=== PATIENT | male | born 1950 | race Two or more races ===

== ENCOUNTER 2023-02-28 22:11 | Inpatient (IN) | payer BC ==
[~2023-02-28] VITALS: Ht 185.4 cm; Wt 86.2 kg
[2023-02-28] MEDS ORDERED: VANCOMYCIN IV 1,000 MG in IV DEXTROSE 5% 250 ML IV ONE (23:00)
[2023-02-28] MEDS ORDERED: IV NORMAL SALINE 500 ML BAG IV ONE (23:00)
[2023-02-28] MEDS ORDERED: HYDROCODONE/APAP 5-325MG TABLET PO ONE (23:00)
[2023-02-28] MEDS ORDERED: VANCOMYCIN 1000 MG VIAL ONE (23:14)
[2023-02-28] MEDS ORDERED: HYDROCODONE/APAP 5-325MG TABLET ONE (23:15)
[2023-02-28 23:31] LABS: CALCIUM 9.3 mg/dL (8.5-10.1); CARBON DIOXIDE 26 mmol/L (21-32); CHLORIDE 104 mmol/L (98-107); GLUCOSE 83 mg/dL (74-106); POTASSIUM 3.7 mmol/L (3.5-5.1); SODIUM SERUM 139 mmol/L (136-145); UREA NITROGEN, BLOOD 22 mg/dL (7-18)
[2023-02-28 23:34] LABS: BASOPHILS % (AUTO) 0.4 % (0.0-2.0); DIFFERENTIAL COMMENT 0; EOSINOPHILS % (AUTO) 0.1 % (0.0-7.0); HEMATOCRIT 44.9 % (36.7-47.1); LYMPHOCYTES # (AUTO) 0.8 K/uL (0.8-4.8); LYMPHOCYTES % (AUTO) 9.2 % (20.5-51.5); MEAN CORPUSCULAR HEMOGLOBIN 34.2 uug (23.8-33.4); MEAN CORPUSCULAR HGB CONC 34 g/dL (32.5-36.3); MEAN CORPUSCULAR VOLUME 102.2 fL (73.0-96.2); MONOCYTES # (AUTO) 0.6 K/uL (0.1-1.30); MONOCYTES % (AUTO) 6.6 % (0.0-11.0); NEUTROPHILS # (AUTO) 7.7 K/uL (1.8-8.9); NEUTROPHILS % (AUTO) 83.7 % (38.5-71.5); PLATELET COUNT (AUTO) 227 K/uL (152-348); RED BLOOD CELL COUNT(AUTO) 4.39 MIL/uL (4.06-5.63); RED CELL DISTRIBUTION WIDTH 13.7 % (12.1-16.2); WHITE BLOOD COUNT (AUTO) 9.2 K/uL (3.6-10.2)
[2023-02-28 23:36] LABS: ALANINE AMINOTRANSFERASE 43 U/L (16-63); ALBUMIN 3.5 g/dL (3.4-5.0); ALKALINE PHOSPHATASE 92 U/L (50-136); ASPARTATE AMINOTRANSFERASE 133 U/L (15-37); BILIRUBIN,DIRECT 0.6 mg/dL (0.0-0.2); BILIRUBIN,TOTAL 2.4 mg/dL (0.2-1.0); TOTAL PROTEIN, SERUM 7.1 g/dL (6.4-8.2)
[2023-03-01] MEDS ORDERED: MAGNESIUM HYDROXIDE 30 ML LIQUID UDC PO PRN (02:30)
[2023-03-01] MEDS ORDERED: LORAZEPAM 2 MG/1 ML VIAL IV PRN (02:30)
[2023-03-01] MEDS ORDERED: REMEDY ESSENTIAL ZINC PASTE 113 GM TP PRN (02:30)
[2023-03-01] MEDS ORDERED: ONDANSETRON 4 MG/2 ML VIAL IV PRN (02:30)
[2023-03-01] MEDS ORDERED: HYDROCODONE/APAP 10-325 MG TABLET PO PRN (02:30)
[2023-03-01] MEDS ORDERED: ACETAMINOPHEN 325 MG TABLET PO PRN (02:30)
[2023-03-01] MEDS: IV NS 1000 ML 1,000 ML IV PRN (03:32)
[2023-03-01] MEDS: VANCOMYCIN IV 750 MG in IV DEXTROSE 5% 250 ML IV SCH ×3 (10:13→21:27)
[2023-03-01 17:30] LABS: *BILIRUBIN,URIN NEGATIVE (NEGATIVE); *BLOOD, URINE 2+ (NEGATIVE); *CLARITY,URINE CLEAR (CLEAR); *COLOR,URINE YELLOW (YELLOW); *KETONES,URINE TRACE (NEGATIVE); *PROTEIN,URINE 2+ (NEGATIVE); *UROBILINOGEN,URINE 0.2 E.U./dl (NORMAL); LEUKOCYTE ESTERASE ,URINE NEGATIVE (NEGATIVE); NITRITE, URINE NEGATIVE (NEGATIVE); PH,URINE 5.5 (5.0-8.0); UGLUCOSE NEGATIVE (NEGATIVE)
[2023-03-01 17:52] LABS: *AMPHETAMINE, URINE NEGATIVE (NEGATIVE); *BARBITURATE, URINE NEGATIVE (NEGATIVE); *BENZODIAZEPINE, URINE NEGATIVE (NEGATIVE); *CANNABINOID, URINE NEGATIVE (NEGATIVE); *COCCAINE, URINE NEGATIVE (NEGATIVE); *OPIATE, URINE POSITIVE (NEGATIVE); *PHENCYCLIDINE SCREEN,URINE NEGATIVE (NEGATIVE)
[2023-03-01 18:31] LABS: FENTANYL, URINE NEGATIVE (NEGATIVE)
[2023-03-01 18:37] LABS: RBC,URINE 20-50 /HPF (0-3)
[2023-03-01 18:38] LABS: BACTERIA,URINE NONE SEEN /HPF (NONE SEEN); SQUAMOUS EPITHELIAL CELL,UR NONE SEEN /HPF (NONE SEEN); WBC,URINE 0-3 /HPF (0-3)
[2023-03-02 05:15] LABS: BASOPHILS % (AUTO) 0.4 % (0.0-2.0); EOSINOPHILS # (AUTO) 0.1 K/uL (0.0-0.7); EOSINOPHILS % (AUTO) 1.4 % (0.0-7.0); HEMATOCRIT 40.5 % (36.7-47.1); HEMOGLOBIN 14.2 g/dL (12.5-16.3); LYMPHOCYTES # (AUTO) 1.3 K/uL (0.8-4.8); MEAN CORPUSCULAR HEMOGLOBIN 35.7 uug (23.8-33.4); MEAN CORPUSCULAR HGB CONC 35 g/dL (32.5-36.3); MEAN CORPUSCULAR VOLUME 101.6 fL (73.0-96.2); MONOCYTES # (AUTO) 0.5 K/uL (0.1-1.30); NEUTROPHILS # (AUTO) 4.2 K/uL (1.8-8.9); NEUTROPHILS % (AUTO) 68.2 % (38.5-71.5); PLATELET COUNT (AUTO) 183 K/uL (152-348); RED BLOOD CELL COUNT(AUTO) 3.99 MIL/uL (4.06-5.63); RED CELL DISTRIBUTION WIDTH 13.5 % (12.1-16.2); WHITE BLOOD COUNT (AUTO) 6.1 K/uL (3.6-10.2)
[2023-03-02 05:16] LABS: DIFFERENTIAL COMMENT 1
[2023-03-02 05:31] LABS: CALCIUM 8.4 mg/dL (8.5-10.1); CARBON DIOXIDE 24 mmol/L (21-32); CHLORIDE 104 mmol/L (98-107); CHOLESTEROL 148 mg/dL (<200); GLUCOSE 91 mg/dL (74-106); HDL CHOLESTEROL 60 mg/dL (40-60); MAGNESIUM 1.8 mg/dL (1.8-2.4); PHOSPHOROUS 2.4 mg/dL (2.5-4.9); POTASSIUM 3.6 mmol/L (3.5-5.1); SODIUM SERUM 137 mmol/L (136-145); TRIGLYCERIDES 63 MG/DL (30-150); UREA NITROGEN, BLOOD 21 mg/dL (7-18)
[2023-03-02 05:41] LABS: THYROID STIMULATING HORMONE 1.279 mIU/mL (0.358-3.740)
[2023-03-02] MEDS: VANCOMYCIN IV 1,000 MG in IV DEXTROSE 5% 250 ML IV SCH ×2 (12:00→22:43)
[2023-03-02] MEDS ORDERED: NEUTRA PHOS PACKET PO ONE (16:00)
[2023-03-02 20:20] VITALS: BP 123/78; TEMP 98.4; O2SAT 98
[2023-03-02] MEDS: IV NS 1000 ML 1,000 ML IV PRN (22:03)
[2023-03-03 04:00] VITALS: BP 127/77; TEMP 98.2; O2SAT 98
[2023-03-03 07:49] LABS: BASOPHILS % (AUTO) 0.5 % (0.0-2.0); EOSINOPHILS # (AUTO) 0.1 K/uL (0.0-0.7); EOSINOPHILS % (AUTO) 1.8 % (0.0-7.0); HEMATOCRIT 37.6 % (36.7-47.1); HEMOGLOBIN 12.8 g/dL (12.5-16.3); LYMPHOCYTES # (AUTO) 1.5 K/uL (0.8-4.8); LYMPHOCYTES % (AUTO) 32.4 % (20.5-51.5); MEAN CORPUSCULAR HEMOGLOBIN 34.3 uug (23.8-33.4); MEAN CORPUSCULAR HGB CONC 34 g/dL (32.5-36.3); MEAN CORPUSCULAR VOLUME 100.9 fL (73.0-96.2); MONOCYTES # (AUTO) 0.5 K/uL (0.1-1.30); MONOCYTES % (AUTO) 10.9 % (0.0-11.0); NEUTROPHILS # (AUTO) 2.5 K/uL (1.8-8.9); NEUTROPHILS % (AUTO) 54.4 % (38.5-71.5); PLATELET COUNT (AUTO) 191 K/uL (152-348); RED BLOOD CELL COUNT(AUTO) 3.72 MIL/uL (4.06-5.63); RED CELL DISTRIBUTION WIDTH 13.2 % (12.1-16.2); WHITE BLOOD COUNT (AUTO) 4.6 K/uL (3.6-10.2)
[2023-03-03 08:04] LABS: DIFFERENTIAL COMMENT 1
[2023-03-03 08:13] LABS: CALCIUM 8.2 mg/dL (8.5-10.1); CARBON DIOXIDE 26 mmol/L (21-32); CHLORIDE 105 mmol/L (98-107); CREATININE 0.9 mg/dL (0.6-1.3); GLUCOSE 91 mg/dL (74-106); MAGNESIUM 1.9 mg/dL (1.8-2.4); PHOSPHOROUS 2.6 mg/dL (2.5-4.9); POTASSIUM 3.6 mmol/L (3.5-5.1); SODIUM SERUM 139 mmol/L (136-145); UREA NITROGEN, BLOOD 17 mg/dL (7-18)
[2023-03-03 11:07] VITALS: BP 141/82; TEMP 98.5; O2SAT 99
[2023-03-03 11:11] VITALS: BP 100/41; TEMP 98.5; O2SAT 99
[2023-03-03] MEDS: VANCOMYCIN IV 1,000 MG in IV DEXTROSE 5% 250 ML IV SCH ×2 (11:33→22:56)
[2023-03-03 15:23] VITALS: BP 105/43; TEMP 98.4; O2SAT 94
[2023-03-03 20:00] VITALS: BP 123/78; TEMP 98.4; O2SAT 98
[2023-03-04] MEDS: IV NS 1000 ML 1,000 ML IV PRN ×2 (02:57→18:21)
[2023-03-04 04:00] VITALS: BP 127/68; TEMP 98; O2SAT 98
[2023-03-04] MEDS: VANCOMYCIN IV 1,000 MG in IV DEXTROSE 5% 250 ML IV SCH ×2 (10:19→23:07)
[2023-03-04 12:00] VITALS: BP 128/53; TEMP 98.5; O2SAT 98
[2023-03-04 16:00] VITALS: BP 122/65; TEMP 98.1
[2023-03-04 20:00] VITALS: BP 123/69; TEMP 97.5
[2023-03-05 08:00] VITALS: BP 127/71; TEMP 97.4; TEMP 98.4; O2SAT 99
[2023-03-05] MEDS: VANCOMYCIN IV 1,000 MG in IV DEXTROSE 5% 250 ML IV SCH ×2 (11:02→22:21)
[2023-03-05 12:00] VITALS: BP 132/81; TEMP 98; O2SAT 96
[2023-03-05 16:00] VITALS: BP 136/82; TEMP 96; O2SAT 94
[2023-03-05] MEDS: IV NS 1000 ML 1,000 ML IV PRN (16:50)
[2023-03-05 20:35] VITALS: BP 106/51; TEMP 97.9; O2SAT 97
[2023-03-06 04:49] VITALS: BP 133/83; TEMP 97.7; O2SAT 100
[2023-03-06 07:57] LABS: CALCIUM 8.5 mg/dL (8.5-10.1); CARBON DIOXIDE 27 mmol/L (21-32); CHLORIDE 106 mmol/L (98-107); CREATININE 0.8 mg/dL (0.6-1.3); GLUCOSE 94 mg/dL (74-106); SODIUM SERUM 139 mmol/L (136-145); UREA NITROGEN, BLOOD 16 mg/dL (7-18)
[2023-03-06] MEDS: VANCOMYCIN IV 1,000 MG in IV DEXTROSE 5% 250 ML IV SCH ×2 (11:52→22:56)
[2023-03-06] MEDS: IV NS 1000 ML 1,000 ML IV PRN (20:39)
[2023-03-07 06:51] VITALS: BP 105/59; TEMP 97.8
[2023-03-07] MEDS: VANCOMYCIN IV 1,000 MG in IV DEXTROSE 5% 250 ML IV SCH (12:18)
[2023-03-07 12:25] VITALS: BP 102/56; TEMP 98.4; O2SAT 99
[2023-03-07] MEDS ORDERED: VANC1PIG IV (14:43)
[2023-03-07] MEDS ORDERED: ACET325T53 PO (14:43)
[2023-03-07 16:21] VITALS: BP 101/53; TEMP 98.2; O2SAT 98
== END 2023-03-07 16:15 | DRG 603 ==
LOC: ER 22:11 → UNDOADMIN 03-01 02:32 → TRANSITION 03-01 02:32 → MEDSURG3 03-02 20:42 → MED 03-04 08:04 → MEDSURG3 03-05 02:35
PROVIDERS: ADMIT Nurse Practitioner Acute Care; ATTEND Nurse Practitioner Family
DX: L03.115 Cellulitis of right lower limb (principal); R17 Unspecified jaundice; Z59.02 Unsheltered homelessness; G31.84 Mild cognitive impairment of uncertain or unknown etiology; R79.89 Other specified abnormal findings of blood chemistry; R60.0 Localized edema; Z75.1 Person awaiting admission to adequate facility elsewhere
CPT/HCPCS: 36415; 70450; 71045; 83735; 84100; 84443; 85025; 87040; A4663; G0378; J3370; J7040; J7050; J7060